=== PATIENT | male | born 1985 | race Caucasian/White ===

== ENCOUNTER 2018-09-10 23:10 | Emergency (ER) | payer SELFPAY ==
[~2018-09-10] VITALS: Ht 170.2 cm; Wt 77.1 kg
[2018-09-10 23:17] VITALS: BP 106/70
[2018-09-11] MEDS ORDERED: CEPHALEXIN500 MG ORAL (00:02)
[2018-09-11] MEDS ORDERED: BACITRACIN ZIN1 EACH TOPIC (00:02)
[2018-09-11 00:15] VITALS: BP 105/72
[2018-09-11] MEDS ORDERED: Bacitracin Oint UD TOPIC ONE (00:15)
--- NOTE | 2018-09-11 07:40 | Emergency Room Report ---
History of Present Illness General Chief Complaint: Medical Clearance Source: Patient Present Illness HPI Patient's a 33-year-old male who presented after increased pain to his right thumb. Patient had suture repair of laceration approximately one week prior to arrival. The patient cannot remember exactly when this was sutured. He is brought in for wound check. The patient was noted be incarcerated with discharge department. Allergies: Coded Allergies: No Known Allergies (Unverified , 09/10/18) Patient History Past Medical History: see triage record Reviewed Nursing Documentation: PMH: Agreed; PSxH: Agreed Nursing Documentation-PMH Past Medical History: No Stated History Review of Systems All Other Systems: negative except mentioned in HPI Physical Exam Vital Signs Date Time Temp Pulse Resp B/P (MAP) Pulse Ox O2 Delivery O2 Flow Rate FiO2 09/10/18 23:14 97.9 75 18 106/70 95 Room Air Sp02 EP Interpretation: reviewed, normal General Appearance: normal inspection, well appearing, no apparent distress, alert, GCS 15 Head: atraumatic ENT: normal ENT inspection, hearing grossly normal, normal voice Neck: normal inspection, full range of motion, supple, no bony tend Respiratory: normal inspection, lungs clear, normal breath sounds, no respiratory distress, no retraction, no wheezing Cardiovascular #1: regular rate, rhythm, no edema Gastrointestinal: normal inspection, normal bowel sounds, non tender, soft, no guarding, no hernia Genitourinary: no CVA tenderness Musculoskeletal: normal inspection, back normal, normal range of motion Neurologic: normal inspection, alert, oriented x3, responsive, orthotist or prosthetist III-XII nml as tested, speech normal Psychiatric: normal inspection, judgement/insight normal, mood/affect normal Skin: no rash, other - healing laceration, no discharge, slight erythema Medical Decision Making Diagnostic Impression: Primary Impression: Visit for wound check ER Course Patient presented for wound check. Differential diagnosis included was not limited to infected wound, nonhealed wound, neuroma, healed wound. Patient has a benign exam and does not appear to require any further imaging or laboratory testing at this time. The patient appears to have a minimally infected wound. Patient was given prescription for oral antibiotics. Patient was medically cleared for incarceration. The patient will require wound check for suture removal Last Vital Signs Date Time Temp Pulse Resp B/P (MAP) Pulse Ox O2 Delivery O2 Flow Rate FiO2 09/11/18 00:15 97.6 74 18 105/72 95 Room Air Status: improved Disposition: HOME, SELF-CARE Condition: Stable Scripts Bacitracin Zinc* (BACITRACIN ZINC*) 1 Each Packet 1 APPLIC TOPIC THREE TIMES A DAY, #30 PACKET Prov: Taras Amor MD 09/11/18 Cephalexin* (KEFLEX*) 500 Mg Capsule 500 MG ORAL EVERY 6 HOURS, #40 CAP Prov: Taras Amor MD 09/11/18 Referrals: NOT CHOSEN IPA/MD,REFERRING (PCP) Departure Forms: Assisted Clearance Patient Instructions: Wound Check Taras Amor MD Sep 11, 2018 07:40
== END 2018-09-11 00:15 | disposition home or self-care (01) ==
LOC: EMR 23:38
DX: M25.541 Pain in joints of right hand (principal)
CPT/HCPCS: 99283